=== PATIENT | female | born 1985 | race African-American/Black ===

== ENCOUNTER 2016-12-20 13:25 | Outpatient (CLI) | payer OTHER | END 2016-12-20 18:57 | disposition home or self-care (01) | LOC: SCT 13:25 | PROVIDERS: ATTEND Internal Medicine | DX: R22.1 Localized swelling, mass and lump, neck (principal); K11.8 Other diseases of salivary glands | CPT/HCPCS: 70490 ==

== ENCOUNTER 2016-12-24 07:58 | Outpatient (CLI) | payer OTHER ==
[2016-12-24 08:49] LABS: BASOPHILS # (AUTO) 0.1 K/uL (0.0-0.2); BASOPHILS % (AUTO) 0.6 % (0.0-2.0); EOSINOPHILS # (AUTO) 0.2 K/uL (0.0-0.4); HEMATOCRIT 42.7 % (36-48); HEMOGLOBIN 14.1 g/dL (12.0-16.0); LYMPHOCYTES # (AUTO) 2.3 K/uL (1.0-5.5); LYMPHOCYTES % (AUTO) 26.9 % (20.5-51.5); MEAN CORPUSCULAR HEMOGLOBIN 27 pg (27-31); MEAN CORPUSCULAR HGB CONC 33 % (32-36); MEAN CORPUSCULAR VOLUME 83 fL (79.0-98.0); MONOCYTES # (AUTO) 0.4 K/uL (0.0-1.0); MONOCYTES % (AUTO) 4.2 % (1.7-9.3); NEUTROPHILS # (AUTO) 5.4 K/uL (1.8-7.7); NEUTROPHILS % (AUTO) 66.3 % (40.0-70.0); PLATELET COUNT (AUTO) 280 K/uL (130-430); RED BLOOD CELL COUNT(AUTO) 5.14 MIL/uL (4.2-6.2); RED CELL DISTRIBUTION WIDTH 12.1 % (9.0-15.0); WHITE BLOOD COUNT (AUTO) 8.4 K/uL (4.8-10.8)
[2016-12-24 08:55] LABS: BILIRUBIN,URINE NEGATIVE (NEGATIVE); BLOOD, URINE TRACE (NEGATIVE); CLARITY/URINE CLEAR (CLEAR); COLOR,URINE YELLOW (YELLOW); GLUCOSE,URINE NEGATIVE (NEGATIVE); KETONES,URINE NEGATIVE (NEGATIVE); LEUKOCYTE ESTERASE ,URINE TRACE (NEGATIVE); NITRITE, URINE NEGATIVE (NEGATIVE); PH,URINE 6.5 (5.0-8.0); PROTEIN URINE NEGATIVE (NEGATIVE); UROBILINOGEN,URINE 0.2 (0.2-1.0)
[2016-12-24 09:06] LABS: BACTERIA,URINE RARE /HPF (None Seen); MUCUS,URINE 1+ /LPF (None Seen)
[2016-12-24 09:08] LABS: ALBUMIN 3.7 g/dL (3.4-4.8); CALCIUM 9.1 mg/dL (8.4-11.0); CREATININE 0.75 mg/dL (0.55-1.30); POTASSIUM 3.8 mmol/L (3.5-5.1); THYROID STIMULATING HORMONE 1.17 uIu/mL (0.34-4.82); TOTAL BILIRUBIN 0.3 mg/dL (0.0-1.0); TOTAL PROTEIN, SERUM 8.1 g/dL (6.4-8.3)
== END 2016-12-24 18:38 | disposition home or self-care (01) ==
LOC: SLB 07:58
PROVIDERS: ATTEND Internal Medicine
DX: Z00.00 Encounter for general adult medical examination without abnormal findings (principal)
CPT/HCPCS: 36415; 80053; 80061; 81000-TC; 82306; 82607; 83735-TC; 84443-TC; 84703; 85025

== ENCOUNTER 2017-07-29 11:12 | Outpatient (CLI) | payer OTHER | END 2017-07-29 19:12 | disposition home or self-care (01) | LOC: SMI 11:12 | PROVIDERS: ATTEND Internal Medicine | DX: M47.892 Other spondylosis, cervical region (principal); M50.30 Other cervical disc degeneration, unspecified cervical region | CPT/HCPCS: 72141 ==

== ENCOUNTER 2017-10-26 15:17 | Outpatient (CLI) | payer OTHER ==
[2017-10-28 08:10] LABS: RUBELLA AB, IgG 1.46 index (Immune >0.99)
== END 2017-10-26 22:19 | disposition home or self-care (01) ==
LOC: SLB 15:17
PROVIDERS: ATTEND Internal Medicine
DX: Z00.00 Encounter for general adult medical examination without abnormal findings (principal)
CPT/HCPCS: 36415; 86735; 86762; 86765

== ENCOUNTER 2017-11-17 07:16 | Outpatient (CLI) | payer OTHER ==
[2017-11-17 08:05] LABS: BASOPHILS # (AUTO) 0.1 K/uL (0.0-0.2); BASOPHILS % (AUTO) 0.8 % (0.0-2.0); EOSINOPHILS # (AUTO) 0.2 K/uL (0.0-0.4); EOSINOPHILS % (AUTO) 2.1 % (0.0-4.0); HEMATOCRIT 46.8 % (36-48); HEMOGLOBIN 15.2 g/dL (12.0-16.0); LYMPHOCYTES # (AUTO) 2.4 K/uL (1.0-5.5); LYMPHOCYTES % (AUTO) 27.6 % (20.5-51.5); MEAN CORPUSCULAR HEMOGLOBIN 27 pg (27-31); MEAN CORPUSCULAR HGB CONC 32 % (32-36); MEAN CORPUSCULAR VOLUME 85 fL (79.0-98.0); MONOCYTES # (AUTO) 0.3 K/uL (0.0-1.0); MONOCYTES % (AUTO) 3.9 % (1.7-9.3); NEUTROPHILS # (AUTO) 5.7 K/uL (1.8-7.7); NEUTROPHILS % (AUTO) 65.6 % (40.0-70.0); PLATELET COUNT (AUTO) 281 K/uL (130-430); RED BLOOD CELL COUNT(AUTO) 5.54 MIL/uL (4.2-6.2); WHITE BLOOD COUNT (AUTO) 8.7 K/uL (4.8-10.8)
[2017-11-17 08:25] LABS: ALBUMIN 3.9 g/dL (3.4-4.8); CALCIUM 9.5 mg/dL (8.4-11.0); CREATININE 0.67 mg/dL (0.55-1.30); POTASSIUM 3.5 mmol/L (3.5-5.1); THYROID STIMULATING HORMONE 1.51 uIu/mL (0.34-4.82); TOTAL BILIRUBIN 0.6 mg/dL (0.0-1.0)
[2017-11-18 12:15] LABS: HEPATITIS B CORE AB, IgM Negative (Negative)
[2017-11-19 06:11] LABS: HEPATITIS Be AG Negative (Negative)
[2017-11-20 10:09] LABS: HEPATITIS Be AB Negative (Negative)
[2017-11-21 10:20] LABS: HEMOGLOBIN A1C 9.4 % (4.8-5.6)
== END 2017-11-17 19:20 | disposition home or self-care (01) ==
LOC: SLB 07:16
PROVIDERS: ATTEND Internal Medicine
DX: Z00.01 Encounter for general adult medical examination with abnormal findings (principal); R79.89 Other specified abnormal findings of blood chemistry
CPT/HCPCS: 36415; 80053; 80061; 82306; 83036; 84443-TC; 85025; 86705; 86707; 87350

== ENCOUNTER 2018-03-30 11:13 | Outpatient (CLI) | payer OTHER | END 2018-03-30 19:43 | disposition home or self-care (01) | LOC: SRD 11:13 | PROVIDERS: ATTEND Internal Medicine | DX: M47.892 Other spondylosis, cervical region (principal) | CPT/HCPCS: 72050-TC ==

== ENCOUNTER 2018-04-07 10:50 | Outpatient (CLI) | payer OTHER | END 2018-04-07 20:27 | disposition home or self-care (01) | LOC: SMI 10:50 | PROVIDERS: ATTEND Internal Medicine | DX: M25.511 Pain in right shoulder (principal) | CPT/HCPCS: 73221 ==

== ENCOUNTER 2018-06-05 09:19 | Outpatient (CLI) | payer OTHER | END 2018-06-05 20:32 | disposition home or self-care (01) | LOC: SMI 09:19 | PROVIDERS: ATTEND Internal Medicine | DX: M50.321 Other cervical disc degeneration at C4-C5 level (principal); M50.322 Other cervical disc degeneration at C5-C6 level; M47.892 Other spondylosis, cervical region | CPT/HCPCS: 72141 ==

== ENCOUNTER 2019-09-13 12:41 | Outpatient (CLI) | payer OTHER | END 2019-09-13 18:03 | disposition home or self-care (01) | LOC: SRD 12:41 | PROVIDERS: ATTEND Internal Medicine | DX: S82.891A Other fracture of right lower leg, initial encounter for closed fracture (principal); M19.071 Primary osteoarthritis, right ankle and foot; M77.31 Calcaneal spur, right foot; X58.XXXA Exposure to other specified factors, initial encounter; Y93.89 Activity, other specified; Y92.89 Other specified places as the place of occurrence of the external cause; Y99.8 Other external cause status ==

== ENCOUNTER 2019-09-24 10:05 | Emergency (ER) | payer OTHER ==
[~2019-09-24] VITALS: Ht 167.6 cm; Wt 77.1 kg
[2019-09-24 10:05] VITALS: BP_SYST 129
--- NOTE | 2019-09-24 10:08 | NUR ---
Pt ambulated to bed 4
--- NOTE | 2019-09-24 10:10 | NUR ---
Patient is awake, alert, and oriented x4. Patient is complaining of burning shooting pain from left hip down to her toes x 3 days. She denies nausea, vomiting, and diarrhea.
--- NOTE | 2019-09-24 10:15 | NUR ---
ER at bedside examining patient.
[2019-09-24] MEDS ORDERED: KETOROLAC TROMETHAMINE 60 MG/2 ML VIAL IM ONE (10:45)
--- NOTE | 2019-09-24 11:28 | NUR ---
Patient given written and verbal discharge instructions and verbalizes understanding. ER MD discussed with patient the results and treatment provided. Patient in stable condition. ID arm band removed. Rx of naproxen,tramadol and prednisone given. Patient educated on pain management and to follow up with PMD. Pain Scale 4. Pain shot was given in ER [facility] for questions provided and answered. Medication side effect fact sheet provided.
[2019-09-24 11:29] VITALS: BP_SYST 135
== END 2019-09-24 11:28 | disposition home or self-care (01) ==
LOC: SED 10:05
DX: M54.42 Lumbago with sciatica, left side (principal)
CPT/HCPCS: 81025; 96372; 99283; J1885

== ENCOUNTER 2019-11-07 13:41 | Outpatient (CLI) | payer OTHER | END 2019-11-07 21:05 | disposition home or self-care (01) | LOC: SLB 13:41 | PROVIDERS: ATTEND Internal Medicine | DX: J18.9 Pneumonia, unspecified organism (principal) | CPT/HCPCS: 71046-TC ==

== ENCOUNTER 2020-02-13 10:13 | Outpatient (CLI) | payer OTHER | END 2020-02-13 20:20 | disposition home or self-care (01) | LOC: SLB 10:13 | PROVIDERS: ATTEND Specialist | DX: Z32.00 Encounter for pregnancy test, result unknown (principal) | CPT/HCPCS: 36415; 84144; 84702-TC ==

== ENCOUNTER 2020-03-26 07:14 | Outpatient (CLI) | payer OTHER ==
[2020-03-26 10:10] LABS: BASOPHILS # (AUTO) 0.1 K/uL (0.0-0.2); EOSINOPHILS # (AUTO) 0.2 K/uL (0.0-0.4); EOSINOPHILS % (AUTO) 1.8 % (0.0-4.0); HEMOGLOBIN 13.8 g/dL (12.0-16.0); LYMPHOCYTES # (AUTO) 2.3 K/uL (1.0-5.5); LYMPHOCYTES % (AUTO) 20.8 % (20.5-51.5); MEAN CORPUSCULAR HEMOGLOBIN 29 pg (27-31); MEAN CORPUSCULAR HGB CONC 34 % (32-36); MEAN CORPUSCULAR VOLUME 84 fL (79.0-98.0); MONOCYTES # (AUTO) 0.6 K/uL (0.0-1.0); MONOCYTES % (AUTO) 5.2 % (1.7-9.3); NEUTROPHILS # (AUTO) 7.9 K/uL (1.8-7.7); NEUTROPHILS % (AUTO) 71.2 % (40.0-70.0); PLATELET COUNT (AUTO) 220 K/uL (130-430); RED BLOOD CELL COUNT(AUTO) 4.86 MIL/uL (4.2-6.2); RED CELL DISTRIBUTION WIDTH 13.6 % (9.0-15.0); WHITE BLOOD COUNT (AUTO) 11.1 K/uL (4.8-10.8)
[2020-03-27 07:28] LABS: HEPATITIS B SURFACE AG Negative (Negative)
[2020-03-27 08:06] LABS: RUBELLA AB, IgG 1.28 index (Immune >0.99)
[2020-03-28 05:27] LABS: RUBELLA AB, IgM <20.0 AU/mL (0.0-19.9)
[2020-03-28 18:07] LABS: FTA-Ab (T PALLIDUM) Non Reactive (Non Reactive)
== END 2020-03-26 20:19 | disposition home or self-care (01) ==
LOC: SLB 07:14
PROVIDERS: ATTEND Internal Medicine
DX: O23.40 Unspecified infection of urinary tract in pregnancy, unspecified trimester (principal); Z3A.00 Weeks of gestation of pregnancy not specified
CPT/HCPCS: 36415; 85025; 86592; 86762; 86780; 86886; 86900; 86901; 87340

== ENCOUNTER 2020-08-01 06:45 | Outpatient (CLI) | payer OTHER ==
[2020-08-01 08:25] LABS: BASOPHILS % (AUTO) 0.3 % (0.0-2.0); EOSINOPHILS # (AUTO) 0.1 K/uL (0.0-0.4); EOSINOPHILS % (AUTO) 1.7 % (0.0-4.0); HEMATOCRIT 34.2 % (36-48); HEMOGLOBIN 11.7 g/dL (12.0-16.0); LYMPHOCYTES # (AUTO) 1.7 K/uL (1.0-5.5); LYMPHOCYTES % (AUTO) 22.3 % (20.5-51.5); MEAN CORPUSCULAR HEMOGLOBIN 28 pg (27-31); MEAN CORPUSCULAR HGB CONC 34 % (32-36); MEAN CORPUSCULAR VOLUME 82 fL (79.0-98.0); MONOCYTES # (AUTO) 0.5 K/uL (0.0-1.0); MONOCYTES % (AUTO) 6.6 % (1.7-9.3); NEUTROPHILS # (AUTO) 5.3 K/uL (1.8-7.7); NEUTROPHILS % (AUTO) 69.1 % (40.0-70.0); PLATELET COUNT (AUTO) 216 K/uL (130-430); RED BLOOD CELL COUNT(AUTO) 4.19 MIL/uL (4.2-6.2); RED CELL DISTRIBUTION WIDTH 13.7 % (9.0-15.0); WHITE BLOOD COUNT (AUTO) 7.6 K/uL (4.8-10.8)
== END 2020-08-01 21:05 | disposition home or self-care (01) ==
LOC: SLB 06:45
PROVIDERS: ATTEND Physician Assistant
DX: Z13.1 Encounter for screening for diabetes mellitus (principal)
CPT/HCPCS: 36415; 82947-TC; 85025

== ENCOUNTER 2020-08-22 08:42 | Outpatient (CLI) | payer OTHER | END 2020-08-22 19:23 | disposition home or self-care (01) | LOC: SLB 08:42 | PROVIDERS: ATTEND Specialist | DX: O09.899 Supervision of other high risk pregnancies, unspecified trimester (principal); O26.899 Other specified pregnancy related conditions, unspecified trimester; Z3A.00 Weeks of gestation of pregnancy not specified | CPT/HCPCS: 36415; 86886 ==

== ENCOUNTER 2022-09-13 15:48 | Outpatient (CLI) | payer OTHER ==
[2022-09-13 16:45] LABS: BILIRUBIN,URINE NEGATIVE (NEGATIVE); BLOOD, URINE 1+ (NEGATIVE); CLARITY/URINE CLEAR (CLEAR); COLOR,URINE YELLOW (YELLOW); GLUCOSE,URINE 3+ (NEGATIVE); KETONES,URINE NEGATIVE (NEGATIVE); LEUKOCYTE ESTERASE ,URINE NEGATIVE (NEGATIVE); NITRITE, URINE NEGATIVE (NEGATIVE); PROTEIN URINE NEGATIVE (NEGATIVE); UROBILINOGEN,URINE 0.2 (0.2-1.0)
[2022-09-13 17:09] LABS: BACTERIA,URINE FEW /HPF (None Seen); MUCUS,URINE None Seen /LPF (None Seen); YEAST,URINE Moderate /HPF (None Seen)
== END 2022-09-13 21:02 | disposition home or self-care (01) ==
LOC: SLB 15:48
PROVIDERS: ATTEND Internal Medicine
DX: N39.0 Urinary tract infection, site not specified (principal)
CPT/HCPCS: 81000; 87077; 87086; 87186-TC

== ENCOUNTER 2022-09-14 21:40 | Emergency (ER) | payer OTHER ==
[~2022-09-14] VITALS: Ht 167.6 cm; Wt 78.0 kg
[2022-09-14 21:50] VITALS: BP_SYST 136
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
--- NOTE | 2022-09-15 01:02 | NUR ---
PT ASSISTED TO HW1 AMBULATED WITH STEADY GAIT
--- NOTE | 2022-09-15 01:08 | NUR ---
PT SEEN AND EXAMINE BY DR. KIM.
[2022-09-15] MEDS ORDERED: METH-634 PO (01:15)
[2022-09-15] MEDS ORDERED: IBUP-1969 PO (01:15)
[2022-09-15] MEDS ORDERED: KETOROLAC TROMETHAMINE 60 MG/2 ML VIAL IM ONE (01:15)
[2022-09-15 01:27] VITALS: BP_SYST 136
--- NOTE | 2022-09-15 01:27 | NUR ---
Patient given written and verbal discharge instructions and verbalizes understanding. ER DR. KIM discussed with patient the results and treatment provided. Patient in stable condition. ID arm band removed. Rx of MOTRIN AND ROBAXIN given. Patient educated on pain management and to follow up with PMD. Pain Scale 0. [facility] for questions provided and answered. Medication side effect fact sheet provided.
== END 2022-09-15 01:27 | disposition home or self-care (01) ==
LOC: SED 21:40
DX: S39.012A Strain of muscle, fascia and tendon of lower back, initial encounter (principal); Z79.899 Other long term (current) drug therapy; V89.2XXA Person injured in unspecified motor-vehicle accident, traffic, initial encounter; Y93.89 Activity, other specified; Y92.89 Other specified places as the place of occurrence of the external cause; Y99.8 Other external cause status
CPT/HCPCS: 99283; 72100; 81025; 96372; J1885